=== PATIENT | male | born 1995 | race Caucasian/White ===

== ENCOUNTER 2017-10-15 13:44 | Emergency (ER) | payer SELFPAY ==
[2017-10-15 13:56] VITALS: O2SAT 99
[2017-10-15] MEDS ORDERED: Albuterol-Ipratrop 3 mg / 0.5 (3 ml) UD INH STA (14:13)
--- NOTE | 2017-10-15 14:13 | C.PDOC ---
History Of Present Illness 21 year old male presents to the ER with a complaint of SOB and intermittent chest wall pain that began today. Patient states the pain worsens with deep inspiration. As per mother, patient has a Hx of asthma, however, has not required a rescue pump over the past few years. Mother also states patient has recently been using hookah. Denies nausea, vomiting, or fever. Time Seen by Provider: 10/15/17 14:04 Chief Complaint (Nursing): Chest Pain History Per: Patient History/Exam Limitations: no limitations Onset/Duration Of Symptoms: Hrs, Intermittent Episodes Current Symptoms Are (Timing): Still Present Recent travel outside of the [place]: No Past Medical History Reviewed: Historical Data, Nursing Documentation, Vital Signs Vital Signs: Last Vital Signs Temp 97.8 F 10/15/17 14:49 Pulse 71 10/15/17 14:49 Resp 16 10/15/17 14:49 BP 123/69 10/15/17 14:49 Pulse Ox 99 10/15/17 14:49 - Medical History PMH: Asthma Family History: States: Unknown Family Hx - Social History Hx Alcohol Use: No Hx Substance Use: No - Immunization History Hx Tetanus Toxoid Vaccination: No Hx Influenza Vaccination: No Hx Pneumococcal Vaccination: No Review Of Systems Constitutional: Negative for: Fever, Chills Respiratory: Positive for: Shortness of Breath Gastrointestinal: Negative for: Nausea, Vomiting Musculoskeletal: Positive for: Other (Chest wall pain) Physical Exam - Physical Exam Appears: Non-toxic Skin: Normal Color, Warm, Dry Head: Atraumatic, Normacephalic Eye(s): bilateral: Normal Inspection Oral Mucosa: Moist Chest: Symmetrical, No Tenderness Cardiovascular: Rhythm Regular Respiratory: Normal Breath Sounds, No Rales, No Rhonchi, No Wheezing Gastrointestinal/Abdominal: Soft, No Tenderness Neurological/Psych: Oriented x3, Normal Speech, Other (No focal deficits) ED Course And Treatment ECG: Interpreted By Me, Viewed By Me ECG Rhythm: Sinus Rhythm ECG Interpretation: Normal Rate From EC O2 Sat by Pulse Oximetry: 99 (Room air) Pulse Ox Interpretation: Normal - Other Rad CXR X-Ray: Viewed By Me, Read By Radiologist Interpretation: HISTORY: Pain. COMPARISON: No prior. TECHNIQUE: Chest PA and lateral. FINDINGS: LUNGS: No active pulmonary disease. PLEURA: No significant pleural effusion identified. No pneumothorax apparent. CARDIOVASCULAR: Normal. OSSEOUS STRUCTURES: No significant abnormalities. VISUALIZED UPPER ABDOMEN: Normal. OTHER FINDINGS: None. IMPRESSION: No active disease. Medical Decision Making Medical Decision Making: Plan: * CXR * EKG * Albuterol nebulizer CXR IMPRESSION: No active disease. Patient remained afebrile and in no acute respiratory distress. On re-eval he reports feeling better after nebulizer treatment. Patient stable for discharge and given Rx ventolin and prednisone and advised on to smoke any substances Disposition Counseled Patient/Family Regarding: Diagnosis, Need For Followup, Rx Given, Smoking Cessation - Disposition Referrals: [facility] [Outside] Disposition: HOME/ ROUTINE Disposition Time: 14:42 Condition: GOOD Additional Instructions: Radhaya a el mdico ortopdico clnica en 1-3 ferrell sin falta, para mas evaluacin. [place] los medicamentos liang indicado. Prescriptions: Albuterol HFA [Ventolin HFA 90 mcg/actuation (8 g)] 1 puff IH Q4 #1 puff predniSONE [predniSONE Tab] 40 mg PO DAILY #10 tab Instructions: Asthma, Adult (DC) Print Language: BURUNDIAN - POA Present On Arrival: None - Clinical Impression Clinical Impression: Pleuritic pain, Asthma - PA / SENIOR VICE PRESIDENT AND CHIEF INFORMATION OFFICER / Resident Statement MD/DO has reviewed & agrees with the documentation as recorded. - Scribe Statement The provider has reviewed the documentation as recorded by the Scribjasvir Castro All medical record entries made by the Scribe were at my direction and personally dictated by me. I have reviewed the chart and agree that the record accurately reflects my personal performance of the history, physical exam, medical decision making, and the department course for this patient. I have also personally directed, reviewed, and agree with the discharge instructions and disposition.
[2017-10-15] MEDS ORDERED: Albuterol-Ipratrop 3 mg / 0.5 (3 ml) UD ONE (14:26)
--- NOTE | 2017-10-15 14:27 | RAD ---
HISTORY: Pain COMPARISON: No prior. TECHNIQUE: Chest PA and lateral FINDINGS: LUNGS: No active pulmonary disease. PLEURA: No significant pleural effusion identified. No pneumothorax apparent. CARDIOVASCULAR: Normal. OSSEOUS STRUCTURES: No significant abnormalities. VISUALIZED UPPER ABDOMEN: Normal. OTHER FINDINGS: None. IMPRESSION: No active disease.
[2017-10-15 14:49] VITALS: BP 123/69; PULSE 71; RESP 16; TEMP 97.8
--- NOTE | 2017-10-16 12:38 | CARD ---
APPROVED REPORT EKG Measurement Heart [id number] <Conclusion> Normal sinus rhythm Minimal voltage criteria for LVH, may be normal variant Borderline ECG
== END 2017-10-15 14:50 | disposition home or self-care (01) ==
LOC: C.ER 13:44
DX: J45.909 Unspecified asthma, uncomplicated (principal); R07.81 Pleurodynia